=== PATIENT | male | born 1960 | race Caucasian/White ===

== ENCOUNTER → 2019-01-28 | Outpatient (CLI) | payer BC, MEDICARE ==
[2016-11-30 23:48] VITALS: BP 129/74
[~2019-01-28] MED LIST: ACET325T9 PO; ACLI400A2 IH; APIX5TAB3 PO; BUDE10.22 IH; CALC0.2530 PO; CALC200V IJ; CALC3.7S5 NS; ERGO500027 PO; ESZO3TAB28 PO; FERR325T14 PO; FOLI0.8T33 PO; HYDR25TA PO; HYOS0.1265 SL; INFL100V IV; MYCO500T PO; OMEP20CA9 PO; POTA10TA17 PO; PRED20TA PO; PRED5TAB19 PO; SODI1TAB11 PO; SUCR500T PO; TAMS0.4C2 PO
--- NOTE | 2019-01-28 16:00 | RAD ---
EXAM: Abdomen, 2 views. HISTORY: Pain. COMPARISON: None. FINDINGS: Frontal upright and supine views of the abdomen are obtained. There is moderate gas and stool within the colon. No abnormally dilated loop of bowel is seen. There is splenomegaly. There are surgical clips overlying the left mid and upper abdomen. There is no free air. IMPRESSION: 1. Nonobstructive bowel gas pattern. 2. Splenomegaly. Electronically signed by: Junie Devi MD (01/28/2019 3:57 PM) [place] [id number]
== END | disposition home or self-care (01) ==
LOC: PMG 15:36
PROVIDERS: ATTEND Physician Assistant
DX: R16.1 Splenomegaly, not elsewhere classified (principal); K92.1 Melena
CPT/HCPCS: 74021

== ENCOUNTER → 2019-02-03 | Outpatient (CLI) | payer BC, MEDICARE ==
[2016-11-30 23:48] VITALS: BP 129/74
--- NOTE | 2019-02-03 14:31 | RAD ---
Examination: CT ABDOMEN PELVIS WO CONTRAST History: HX RENAL CELL CA, PT UNABLE TO TOLERATE CONTRAST. COMPLAINS OF RIGHT LOWER PELVIC PAIN Comparison/Correlation: 04/25/2013 CT abdomen and pelvis without contrast Findings: Axial images of the abdomen and pelvis were obtained without contrast. Sagittal and coronal reformatted images were provided. Mild centrilobular emphysematous involvement of the lung gonzalez noted. Nodular contour of the liver noted. Marked splenomegaly is present with the spleen measuring 17.4 cm longitudinal. Numerous varices are noted about the splenic hilum extending about the esophagus and into the mesenteric region. 2.9 cm diameter calculus is present within the gallbladder. No pericholecystic fluid. No biliary dilatation.. Varices about the esophagus also noted. Numerous bilateral renal calculi are present. Bilateral renal cysts are present. Some of these cysts are of high density as would be expected of hemorrhagic or proteinaceous cysts. Along the posterior margin of the right renal interpolar region, there is a complex cystic structure measuring 5 cm x 2.8 cm. Moderate quantity of stool in the colon is noted. Diverticulosis of the colon identified. Trace pelvic free fluid evident. Urinary bladder is unremarkable. No extraluminal gas. Appendix is normal. Concentric disc bulge at L5/S1 noted. No acute bony process. No suspicious bony process. Lucencies involving the pelvic bony structures are unchanged compared to previous exam. Impression: Hepatic cirrhosis and splenomegaly with significant varices including about the distal esophagus. Diverticulosis. Heterogeneous complex cystic structure along the posterior margin of the right kidney is present. This may represent a hemorrhagic or proteinaceous cyst but neoplastic process is not excluded. Further evaluation with contrast-enhanced CT according to renal protocol. Consider for more complete assessment of this as well as other renal lesions. Alternatively, ultrasound may be considered. Cholelithiasis. PQRS Compliance Statement: One or more of the following individualized dose reduction techniques were utilized for this examination: 1. Automated exposure control 2. Adjustment of the mA and/or kV according to patient size 3. Use of iterative reconstruction technique Electronically signed by: Gerber Mark MD (02/03/2019 2:29 PM) [id number]
== END | disposition home or self-care (01) ==
LOC: CT 12:48
PROVIDERS: ATTEND Physician Assistant
DX: K80.20 Calculus of gallbladder without cholecystitis without obstruction (principal); K57.30 Diverticulosis of large intestine without perforation or abscess without bleeding; K74.60 Unspecified cirrhosis of liver; R16.1 Splenomegaly, not elsewhere classified; K76.89 Other specified diseases of liver; I85.00 Esophageal varices without bleeding; I86.8 Varicose veins of other specified sites; N20.0 Calculus of kidney; N28.1 Cyst of kidney, acquired; J43.2 Centrilobular emphysema
CPT/HCPCS: 74176

== ENCOUNTER → 2020-08-06 | Outpatient (CLI) | payer OTHER, MEDICARE ==
[2016-11-30 23:48] VITALS: BP 129/74
[~2020-08-06] MED LIST changes: -ACLI400A2 IH; +ACLI400A3 IH; +ALLO100T PO; +FURO40TA4 PO; +OMEP20CA16 PO; -OMEP20CA9 PO; +ZOLP10TA PO
--- NOTE | 2020-08-06 16:30 | RAD ---
LUMBAR SPINE MIN 4V History: Back pain Comparison: CT abdomen pelvis exam February 03, 2019 Findings: 5 views lumbar spine are submitted. Lumbar vertebral body stature and AP alignment are overall maintained. No acute osseous abnormality is identified by radiographs. There is facet degenerative change greater inferiorly of the lumbar spine. There is again mild to moderate narrowing greater posteriorly of the L5-S1 intervertebral disc space. There is prominent splenic arterial calcification. Impression: 1. No acute osseous abnormality is identified by radiographs. There is again L5-S1 degenerative disc disease. Electronically signed by: Jesse Dubon MD (08/06/2020 4:27 PM) [facility]
== END ==
LOC: DXRAD 15:27
PROVIDERS: ATTEND Physician Assistant
DX: M51.37 Other intervertebral disc degeneration, lumbosacral region (principal); M48.07 Spinal stenosis, lumbosacral region
CPT/HCPCS: 72110

== ENCOUNTER 2020-08-08 16:49 | Observation (INO) | payer OTHER, MEDICARE ==
[~2020-08-08] VITALS: Ht 170.2 cm; Wt 64.9 kg
[~2020-08-08 16:49] MED LIST changes: -ALLO100T PO; -FURO40TA4 PO; -ZOLP10TA PO
--- NOTE | 2020-08-08 17:22 | PHYS DOC ---
Past History Past Medical History: Bronchitis, Cancer, COPD, Kidney Stones, Renal Failure, Other Additional Past Medical Histor: SARCODOSIS, KIDNEY CANCER (SILVIA ROLDAN MD) Past Surgical History: Other Additional Past Surgical Histo: PARTIAL L NEPHRECTOMY, R KIDNEY ABLATION (SILVIA ROLDAN MD) Alcohol Use: None Drug Use: None (SILVIA ROLDAN MD) General Adult EDM: Chief Complaint: MULTIPLE COMPLAINTS HPI: HPI: 59-year-old male with history of COPD coming in for multiple complaints. Says he has congestion unable to clear his throat. Is had decreased p.o. intake. Says some of his throat is sore from try to clear congestion. Says he has been having tremors and feels like he is dehydrated. Has had some soft stools but should be seen because he is on the drinking water and Pedialyte. Has used his albuterol inhaler twice a day. States he feels like he is having decreased pulmonary function. Follows with pulmonology at . States he also about 2 weeks ago had a bilateral venous Doppler done that was negative for DVT due to symmetric lower extremity swelling. He also states that he has a nonhealing wound after about 2-1/2 months on his right vickers (SILVIA ROLDAN MD) Review of Systems: Review of Systems: Constitutional: Denies fever or chills Eyes: Denies change in visual acuity HENT: Denies nasal congestion or sore throat Respiratory: Denies cough or shortness of breath Cardiovascular: Denies chest pain or edema GI: Denies abdominal pain, nausea, vomiting, bloody stools or diarrhea : Denies dysuria Musculoskeletal: Denies back pain or joint pain Integument: Denies rash Neurologic: Denies headache, focal weakness or sensory changes Endocrine: Denies polyuria or polydipsia Lymphatic: Denies swollen glands Psychiatric: Denies depression or anxiety (SILVIA ROLDAN MD) Heart Score: Risk Factors: Risk Factors: DM, Current or recent (<one month) smoker, HTN, HLP, family history of CAD, obesity. Risk Scores: Score 0 - 3: 2.5% MACE over next 6 weeks - Discharge Home Score 4 - 6: 20.3% MACE over next 6 weeks - Admit for Clinical Observation Score 7 - 10: 72.7% MACE over next 6 weeks - Early Invasive Strategies (SILVIA ROLDAN MD) HEART Score for Chest Pain: HEART Score for Chest Pain Response (Comments) Value History Slighlty/Non-Suspicious 0 ECG Nonspecific Repolarizatio 1 Age >45 - < 65 1 Risk Factors >3 Risk Factors or Hx CAD 2 Troponin < Normal Limit 0 Total 4 Allergies: Allergies: Allergies Coded Allergies Type Severity Reaction Last Updated Verified Beta-Blockers (Beta-Adrenergic Bloc Allergy Severe sob 04/01/15 No eszopiclone Allergy Intermediate headache 04/01/15 No sucralfate Allergy Intermediate itching 04/01/15 No codeine Allergy Mild 08/28/14 Yes mycophenolate mofetil Allergy Mild 08/28/14 Yes (SILVIA ROLDAN MD) Physical Exam: PE: Constitutional: Well developed, well nourished, no acute distress, non-toxic appearance. [] HENT: Normocephalic, atraumatic, bilateral external ears normal, oropharynx moist, no oral exudates, nose normal. [] Eyes: PERRLA, EOMI, conjunctiva normal, no discharge. [] Neck: Normal range of motion, no tenderness, supple, no stridor. [] Cardiovascular:Heart rate regular rhythm, no murmur [] Lungs & Thorax: Bilateral breath sounds clear to auscultation [] Abdomen: Bowel sounds normal, soft, no tenderness, no masses, no pulsatile masses. [] Skin: Warm, dry, no erythema, no rash. [] Back: No tenderness, no CVA tenderness. [] Extremities: No tenderness, no cyanosis, no clubbing, ROM intact, no edema. [] Neurologic: Alert and oriented X 3, normal motor function, normal sensory function, no focal deficits noted. [] Psychologic: Affect normal, judgement normal, mood normal. [] (SILVIA ROLDAN MD) Current Patient Data: Vital Signs: Vital Signs Date Time Temp Pulse Resp B/P (MAP) Pulse Ox O2 Delivery O2 Flow Rate FiO2 08/08/20 17:15 97.8 120 22 127/76 (93) 97 Room Air (SILVIA ROLDAN MD) Labs: Laboratory Tests Test 08/08/20 17:18 08/08/20 17:40 Bedside Venous pH 7.39 (7.32-7.42) Bedside Venous pCO2 47 mmHg (41-51) Bedside Venous pO2 28 mmHg (20-40) Venous Blood HCO3 28 mmol/L (24-28) POC Venous O2 Saturation (Terrell) 52 % Bedside FiO2 21 White Blood Count 5.6 x10^3/uL (4.0-11.0) Red Blood Count 3.61 x10^6/uL (4.30-5.70) Hemoglobin 9.5 g/dL (13.0-17.5) Hematocrit 29.3 % (39.0-53.0) Mean Corpuscular Volume 81 fL (79-100) Mean Corpuscular Hemoglobin 26 pg (25-35) Mean Corpuscular Hemoglobin Concent 33 g/dL (31-37) Red Cell Distribution Width 18.6 % (11.5-14.5) Platelet Count 58 x10^3/uL (140-400) Neutrophils (%) (Auto) 94 % (31-73) Lymphocytes (%) (Auto) 2 % (24-48) Monocytes (%) (Auto) 4 % (0-9) Eosinophils (%) (Auto) 0 % (0-3) Basophils (%) (Auto) 0 % (0-3) Neutrophils # (Auto) 5.2 x10^3uL (1.8-7.7) Lymphocytes # (Auto) 0.1 x10^3/uL (1.0-4.8) Monocytes # (Auto) 0.2 x10^3/uL (0.0-1.1) Eosinophils # (Auto) 0.0 x10^3/uL (0.0-0.7) Basophils # (Auto) 0.0 x10^3/uL (0.0-0.2) Sodium Level 130 mmol/L (136-145) Potassium Level 3.0 mmol/L (3.5-5.1) Chloride Level 91 mmol/L (98-107) Carbon Dioxide Level 27 mmol/L (21-32) Anion Gap 12 (6-14) Blood Urea Nitrogen 96 mg/dL (8-26) Creatinine 3.4 mg/dL (0.7-1.3) Estimated GFR (Cockcroft-Gault) 18.5 BUN/Creatinine Ratio 28 (6-20) Glucose Level 95 mg/dL (70-99) Lactic Acid Level 1.2 mmol/L (0.4-2.0) Calcium Level 11.3 mg/dL (8.5-10.1) Phosphorus Level 4.7 mg/dL (2.6-4.7) Magnesium Level 2.2 mg/dL (1.8-2.4) Total Bilirubin 0.7 mg/dL (0.2-1.0) Aspartate Amino Transf (AST/SGOT) 21 U/L (15-37) Alanine Aminotransferase (ALT/SGPT) 46 U/L (16-63) Alkaline Phosphatase 128 U/L (46-116) Troponin I Quantitative 0.045 ng/mL (0-0.055) OS-Kpi-U-Type Natriuretic Peptide 674 pg/mL (0-124) Total Protein 6.3 g/dL (6.4-8.2) Albumin 3.6 g/dL (3.4-5.0) Albumin/Globulin Ratio 1.3 (1.0-1.7) Vital Signs: Vital Signs Date Time Temp Pulse Resp B/P (MAP) Pulse Ox O2 Delivery O2 Flow Rate FiO2 08/08/20 17:15 97.8 120 22 127/76 (93) 97 Room Air (ALLY SANCHEZ DO) EKG: EKG: Sinus tachycardia, heart rate 110, regular rhythm, [] (SILVIA ROLDAN MD) EKG: EKG ordered and interpreted by off going physician and then again evaluated by myself, sinus tachycardia at 110 bpm, intervals unremarkable, left axis deviation, no acute ischemic findings, no STEMI (ALLY SANCHEZ DO) Radiology/Procedures: Radiology/Procedures: [] (SILVIA ROLDAN MD) Impressions: PROCEDURE: CHEST PA & LATERAL Chest radiograph 08/08/2020 5:18 PM INDICATION: Dyspnea with COPD. History of sarcoidosis. COMPARISON: 11/30/2016 TECHNIQUE: Frontal and lateral views of the chest are provided. FINDINGS: The cardiomediastinal silhouette is within normal limits. Trace right pleural effusion and adjacent compressive atelectasis versus infiltrate. Pulmonary emphysematous changes are present. No pulmonary vascular congestion or pneumothorax. No significant osseous abnormality is identified. IMPRESSION: Trace right pleural effusion with adjacent compressive atelectasis versus infiltrate. COPD changes appears similar to prior examination. Electronically signed by: Erin Mcqueen MD (08/08/2020 6:01 PM) [facility] (ALLY SANCHEZ DO) Course & Med Decision Making: Course & Med Decision Making Care transition shift change, pending imaging and blood work. [] (SILVIA ROLDAN MD) Course & Med Decision Making Discussed case with off going physician and pending work-up Patient seen and evaluated by myself after signout, agree with off going physician's work-up thus far Patient still feeling weak at this time, he has concern for ability to tolerate p.o. intake at home and wants to be admitted After comprehensive work-up, evaluation, and discussion with patient, I feel this is needed Patient will require IV fluids, IV supplementation to correct electrolyte abnormalities, in addition to continued respiratory monitoring given patient's symptomology I discussed case with Dr. Dyson who is amenable for admission and observation Patient updated on this decision, all questions and concerns addressed prior to transport to [facility] for continued medical care (ALLY SANCHEZ DO) Dragon Disclaimer: Dragon Disclaimer: This electronic medical record was generated, in whole or in part, using a voice recognition dictation system. (SILVIA ROLDAN MD) Departure Departure: Impression: Primary Impression: Dehydration Additional Impressions: Electrolyte abnormality Dysphagia Disposition: ADMITTED INPT THIS HOSP (observation to [facility]) Admitting Physician: Az Dyson (ALLY SANCHEZ DO) Condition: STABLE Referrals: PAVEL FOX (PCP) SILVIA ROLDAN MD Aug 08, 2020 17:22 ALLY SANCHEZ DO Aug 08, 2020 18:50
--- NOTE | 2020-08-08 17:55 | EKG ---
[address] [address] Test Date: 2020-08-08 Test Time: 17:34:03 Pat Name: ESCOBAR PAZ Department: Room: Gender: M Retail Salesworker: LUIS : 1960 Requested By: SILVIA ROLDAN Order Number: [id number] Reading MD: Barry Loving Measurements Intervals [place] Rate: 110 P: 79 NH: 156 QRS: -65 QRSD: 86 T: 64 QT: 336 QTc: 460 Interpretive Statements SINUS TACHYCARDIA LEFT ATRIAL ABNORMALITY ABNORMAL LEFT AXIS DEVIATION LOW LIMB LEAD VOLTAGE RIGHT BUNDLE BRANCH BLOCK Electronically Signed On 08-24-2020 17:28:24 EMPLOYEE DEVELOPMENT MANAGER by Barry Loving
[2020-08-08 18:00] LABS: BASO % 0 % (0-3); EOS % 0 % (0-3); HEMATOCRIT 29.3 % (39.0-53.0); HEMOGLOBIN 9.5 g/dL (13.0-17.5); LYMPH # 0.1 x10^3/uL (1.0-4.8); LYMPH % 2 % (24-48); MEAN CORPUSCULAR HEMOGLOBIN 26 pg (25-35); MEAN CORPUSCULAR HGB CONC 33 g/dL (31-37); MEAN CORPUSCULAR VOLUME 81 fL (79-100); MONO # 0.2 x10^3/uL (0.0-1.1); MONO % 4 % (0-9); NEUT # 5.2 x10^3uL (1.8-7.7); NEUT % 94 % (31-73); PLATELET COUNT 58 x10^3/uL (140-400); RED BLOOD COUNT 3.61 x10^6/uL (4.30-5.70); RED CELL DISTRIBUTION WIDTH 18.6 % (11.5-14.5); WHITE BLOOD COUNT 5.6 x10^3/uL (4.0-11.0)
--- NOTE | 2020-08-08 18:05 | RAD ---
Chest radiograph 08/08/2020 5:18 PM INDICATION: Dyspnea with COPD. History of sarcoidosis. COMPARISON: 11/30/2016 TECHNIQUE: Frontal and lateral views of the chest are provided. FINDINGS: The cardiomediastinal silhouette is within normal limits. Trace right pleural effusion and adjacent compressive atelectasis versus infiltrate. Pulmonary emphysematous changes are present. No pulmonary vascular congestion or pneumothorax. No significant osseous abnormality is identified. IMPRESSION: Trace right pleural effusion with adjacent compressive atelectasis versus infiltrate. COPD changes appears similar to prior examination. Electronically signed by: Erin Mcqueen MD (08/08/2020 6:01 PM) [facility]
[2020-08-08 18:20] LABS: ALBUMIN 3.6 g/dL (3.4-5.0); ALBUMIN/GLOBULIN RATIO 1.3 (1.0-1.7); CALCIUM 11.3 mg/dL (8.5-10.1); CREATININE 3.4 mg/dL (0.7-1.3); GFR 18.5; MAGNESIUM 2.2 mg/dL (1.8-2.4); PHOSPHORUS 4.7 mg/dL (2.6-4.7); TOTAL BILIRUBIN 0.7 mg/dL (0.2-1.0); TOTAL PROTEIN 6.3 g/dL (6.4-8.2)
[2020-08-08] MEDS ORDERED: POTASSIUM CHLORIDE 20 MEQ TABLET.ER. PO ONE (18:30)
[2020-08-08] MEDS ORDERED: POTASSIUM CL 40MEQ IN 0.9%NACL 500 ML IV ONE (18:45)
[2020-08-08] MEDS ORDERED: POTASSIUM CL 40MEQ IN 0.9%NACL 1,000 ML IV ONE (19:00)
[2020-08-08] MEDS ORDERED: ACETAMINOPHEN 325 MG TABLET PO PRN (19:00)
[2020-08-08 20:16] VITALS: BP 118/71
[2020-08-08] MEDS ORDERED: FURO40TA4 PO (21:13)
[2020-08-08] MEDS ORDERED: PRED20TA PO (21:13)
[2020-08-08] MEDS ORDERED: ALLO100T PO (21:13)
[2020-08-08] MEDS ORDERED: ZOLP10TA PO (21:13)
[2020-08-08] MEDS ORDERED: ZOLPIDEM 5 MG TABLET. PO PRN (21:30)
[2020-08-08 21:37] LABS: BILIRUBIN,URINE NEG (NEG); CLARITY,URINE CLEAR; COLOR,URINE STRAW; GLUCOSE,URINE NEG (NEG); NITRITE,URINE NEG (NEG); UROBILINOGEN,URINE 0.2 mg/dL (0.2 mg/dL)
[2020-08-08 21:44] LABS: BACTERIA,URINE 0 /HPF (0-FEW); RBC,URINE 0 /HPF (0-2); SQUAMOUS EPITHELIAL CELL,UR OCC /LPF; WBC,URINE 0 /HPF (0-4)
[2020-08-08] MEDS ORDERED: predniSONE 20 MG TABLET PO SCH (22:00)
--- NOTE | 2020-08-08 22:52 | NUR ---
The patient, ESCOBAR PAZ, 59 y/o, M admitted by FELIX GARCIA MD, to room 117, was given written information regarding hospital policies, unit procedures and contact persons. Valuables were checked and left with the patient. Medications reviewed, needs assessed, medical history reviewed. Reviewed medications with Dr. Garcia; orders given and implemented. Will continue to monitor.
[2020-08-08 23:00] VITALS: BP 119/75
[2020-08-09 05:56] VITALS: BP 113/76
[2020-08-09 07:12] LABS: CALCIUM 10.2 mg/dL (8.5-10.1); CREATININE 3.2 mg/dL (0.7-1.3); GFR 19.8; POTASSIUM 3.5 mmol/L (3.5-5.1)
[2020-08-09] MEDS: IPRATRPIUM/ALBUTEROL 0.5/2.5MG 3 ML NEBU. NEB SCH ×2 (08:00→09:58)
[2020-08-09] MEDS ORDERED: BUDESONIDE 0.5 MG/2 ML NEBU NEB SCH (08:00)
[2020-08-09] MEDS ORDERED: FORMOTEROL FUMARATE IH SCH (09:00)
[2020-08-09] MEDS ORDERED: NON FORMULARY ITEM (Aclidinium Bromide (Tudorza Pressair) 400 MCG) IH SCH (09:00)
[2020-08-09] MEDS ORDERED: predniSONE 20 MG TABLET PO SCH (09:00)
[2020-08-09] MEDS ORDERED: BUDESONIDE IH SCH (09:00)
[2020-08-09] MEDS ORDERED: [UNRECOGNIZED DRUG - OTHER] IH SCH (09:00)
[2020-08-09] MEDS ORDERED: TAMSULOSIN 0.4 MG CAP.ER.24H. PO SCH (09:00)
--- NOTE | 2020-08-09 10:14 | HP ---
ADMIT DATE: 08/09/2020 ATTENDING PHYSICIAN: Dr. Garcia. CHIEF COMPLAINT: Weakness and low potassium. HISTORY OF PRESENT ILLNESS: The patient is a 59-year-old gentleman with sarcoidosis, COPD. He is on chronic prednisone therapy. He was admitted with weakness, dehydration, and hypokalemia of 3.0. He has sarcoidosis. He has had previous kidney ablation and partial resection. His baseline creatinine is 3.0 mg percent. He had bilateral venous Doppler studies recently. He was admitted for further treatment and evaluation. PAST MEDICAL HISTORY: Significant for chronic COPD, sarcoidosis, renal cell cancer and partial resection, partial left nephrectomy, right kidney ablation. He is on chronic prednisone therapy. CURRENT MEDICINES: Reviewed. ALLERGIES: He has allergies to BETA BLOCKERS, CODEINE, MYCOPHENOLATE and CARAFATE. CURRENT MEDICATIONS: Include Tylenol, Tudorza inhalers, allopurinol, apixaban, budesonide, calcium, ferrous sulfate, folic acid, Lasix daily, hydroxyzine, Remicade has been discontinued, mycophenolate, CellCept, potassium, prednisone 40 mg daily, sodium bicarbonate, Flomax and Ambien at bedtime. SOCIAL HISTORY: He is a nonsmoker, nondrinker. FAMILY HISTORY: Noncontributory. REVIEW OF SYSTEMS: Significant for chronic phlegm, dyspnea with some exertion. His creatinine has been elevated. He has chronic renal failure. He tells me they wanted to do dialysis 15 years ago. He had close followup and avoided it since then. He sees a Pulmonary and Nephrology Services as well as Rheumatology at [facility]. All other systems reviewed and turned to be negative. PHYSICAL EXAMINATION: GENERAL: When I saw him, this is a pleasant, alert gentleman. INITIAL VITAL SIGNS: Showed a blood pressure 127/76 mmHg. He was afebrile, pulse is 103 and regular. He had oxygen saturation 97% on room air. HEENT: Head is without trauma. Pupils are reactive. Sclerae nonicteric. Oropharynx is clear. NECK: Supple, no bruits identified. LUNGS: Otherwise clear. CARDIOVASCULAR: Showed regular heart tones. No gallops. ABDOMEN: Soft, scaphoid, nontender. EXTREMITIES: Showed no cyanosis. He has 1+ edema. NEUROLOGIC FUNCTION: Focally intact. SKIN: Warm and dry. There is a chronic nonhealing wound of the right vickers. NEUROLOGIC: Focally intact. Speech is fluent. PERTINENT LABORATORY STUDIES: The admission hemoglobin was 9.5 g/dL, white count 5600, potassium 3.0 mEq, creatinine is 3.4 mg percent. Transaminases normal. Cardiac enzymes negative. BNP was 674. Chest x-ray demonstrated trace right pleural effusion with some minimal atelectasis, no acute infiltrates identified. ASSESSMENT: A 59-year-old gentleman with; 1. Dehydration due to diuretics. 2. Hypokalemia. 3. History of sarcoidosis. 4. Acute on chronic renal failure. 5. History of partial nephrectomy. 6. Anemia of chronic disease. PLAN: 1. Observation status. 2. IV hydration, potassium supplementation. 3. Diuretics have been held. 4. Continue home meds. FELIX GARCIA MD DR: LENNIE/arielle JOB#: [id number] / [id number]
--- NOTE | 2020-08-09 10:16 | DS ---
DATE OF DISCHARGE: 08/09/2020 ATTENDING PHYSICIAN: Dr. Garcia. FINAL DISCHARGE DIAGNOSES: 1. Dehydration, rehydrated. 2. Hypokalemia, replaced. 3. Acute on chronic renal failure. 4. Sarcoidosis. 5. Chronic prednisone therapy. 6. Hypertension. 7. History of pulmonary embolism. 8. Dysphagia. HISTORY AND PHYSICAL: This pleasant 59-year-old gentleman with multiple medical issues, is on chronic prednisone therapy. He has fluid retention. He was dehydrated from his Lasix diuretics, potassium was 3.0 mEq per liter. He was admitted for further treatment and adjustment of the electrolyte abnormalities. PHYSICAL EXAMINATION: Please see the dictated note. PERTINENT LABORATORY AND X-RAY STUDIES: Repeat potassium is up to 3.5 mEq, sodium state at 130, creatinine improved from 3.4 down to 3.2 mg/dL, this is his baseline. Calcium is 10.2. COURSE IN THE HOSPITAL: The patient was admitted. We held his diuretics for a day. He received IV hydration fluids and potassium replacement. He did well. By the next hospital day, vital signs are stable. Swelling was not a problem. He wanted to go home. I felt this is reasonable. At this time, I recommend that he hold his diuretics for another day. In addition, he should continue his prednisone scheduled 40 mg daily to be tapered by his primary care doctor. He will continue his Tudorza inhaler, allopurinol, Eliquis, budesonide, calcitonin, Lunesta, ferrous sulfate, folic acid, Lasix starting the next day, one alternating with 240 mg tablets every other day, hyoscyamine, Remicade, CellCept, potassium 20 mEq daily, I did not increase it due to his renal clearance. Again, sodium bicarbonate, Velphoro, Flomax and Ambien dose is unchanged. He will follow up in the next week or so with lab work at the office with Fernando Smith. He was discharged then from our hospital in stable condition with explicit instructions and followup care. FELIX GARCIA MD DR: LENNIE/arielle JOB#: [id number] / [id number] FERNANDO Varela
[2020-08-09 10:27] VITALS: BP 126/76
== END 2020-08-09 13:15 | disposition home or self-care (01) ==
LOC: ER 16:49 → 1 SOUTH 19:09
PROVIDERS: ADMIT Hospitalist; ATTEND Hospitalist
DX: E86.0 Dehydration (principal); T50.2X5A Adverse effect of carbonic-anhydrase inhibitors, benzothiadiazides and other diuretics, initial encounter; E87.6 Hypokalemia; D63.8 Anemia in other chronic diseases classified elsewhere; D86.9 Sarcoidosis, unspecified; N17.9 Acute kidney failure, unspecified; N18.9 Chronic kidney disease, unspecified; J44.9 Chronic obstructive pulmonary disease, unspecified; Z79.52 Long term (current) use of systemic steroids; Z79.899 Other long term (current) drug therapy
CPT/HCPCS: 36415; 71046; 80048; 80053; 81001; 82803; 83605; 83735; 83880; 84100; 84443; 84484; 85025; 93005; 96365; 96366; 99285; G0378; J7512; G0379

== ENCOUNTER → 2020-08-24 | Outpatient (CLI) | payer OTHER, MEDICARE ==
[2020-08-09 10:27] VITALS: BP 126/76
[~2020-08-24] MED LIST changes: +ALLO100T PO; +FURO40TA4 PO; +ZOLP10TA PO
== END ==
LOC: LAB 13:32
PROVIDERS: ATTEND Physician Assistant
DX: R06.00 Dyspnea, unspecified (principal); Z20.828 Contact with and (suspected) exposure to other viral communicable diseases
CPT/HCPCS: U0003

== ENCOUNTER 2020-09-06 16:59 | Emergency (ER) | payer OTHER, MEDICARE ==
[~2020-09-06] VITALS: Ht 172.7 cm; Wt 61.0 kg
[2020-09-06] MEDS ORDERED: 0.9 % SODIUM CHLORIDE 10 ML DISP.SYRIN. IV PRN (17:15)
--- NOTE | 2020-09-06 17:26 | PHYS DOC ---
Past History Past Medical History: Bronchitis, Cancer, COPD, Kidney Stones, Renal Failure, Other Additional Past Medical Histor: SARCODOSIS, KIDNEY CANCER (CANDELARIA PEARSON APRN) Past Surgical History: Tonsillectomy, Other Additional Past Surgical Histo: PARTIAL L NEPHRECTOMY, R KIDNEY ABLATION (CANDELARIA PEARSON APRN) Alcohol Use: None Drug Use: None (CANDELARIA PEARSON APRN) Adult General Chief Complaint Chief Complaint: HYPOTENSION HPI HPI Patient is a 60-year-old male patient presenting to the ED today to be evaluated for low blood pressure, weakness for 1 week, and chronic wounds to bilateral LE. Patient reports history of renal failure, partial left nephrectomy, and states they planto start him on dialysis. He states he has history of sarcoidosis and COPD as well. Denies any fever, has chronic cough (CANDELARIA PEARSON APRN) Review of Systems Review of Systems Constitutional: Reports generalized weakness. Denies fever or chills [] Eyes: Denies change in visual acuity, redness, or eye pain [] HENT: Denies nasal congestion or sore throat [] Respiratory: Denies cough or shortness of breath [] Cardiovascular: Reports hypertension. No additional information not addressed in HPI [] GI: Denies abdominal pain, nausea, vomiting, bloody stools or diarrhea [] : Denies dysuria or hematuria [] Musculoskeletal: Denies back pain or joint pain [] Integument: Reports chronic wounds to bilateral lower extremities Neurologic: Denies headache, focal weakness or sensory changes [] All other systems were reviewed and found to be within normal limits, except as documented in this note. (CANDELARIA PEARSON APRN) Current Medications Current Medications Current Medications Medications (Trade) Dose Ordered Sig/Anamaria Start Time Stop Time Status Last Admin Dose Admin Fentanyl Citrate (Fentanyl 2ml Vial) 50 mcg PRN Q15MIN PRN 09/06/20 17:15 09/07/20 17:14 Sodium Chloride (Normal Saline Flush) 10 ml QSHIFT PRN 09/06/20 17:15 (CANDELARIA PEARSON APRN) Allergies Allergies Allergies Coded Allergies Type Severity Reaction Last Updated Verified Beta-Blockers (Beta-Adrenergic Bloc Allergy Severe sob 09/06/20 No eszopiclone Allergy Intermediate headache 09/06/20 No sucralfate Allergy Intermediate itching 09/06/20 No codeine Allergy Mild 09/06/20 Yes mycophenolate mofetil Allergy Mild 09/06/20 Yes erythromycin base Allergy Unknown 09/06/20 Yes (CANDELARIA PEARSON APRN) Physical Exam Physical Exam Constitutional: Well developed, well nourished, no acute distress, non-toxic appearance. [] HENT: Normocephalic, atraumatic, bilateral external ears normal, oropharynx moist, no oral exudates, nose normal. [] Eyes: PERRLA, EOMI, conjunctiva normal, no discharge. [] Neck: Normal range of motion, no tenderness, supple, no stridor. [] Cardiovascular:Heart rate regular rhythm, no murmur [] Lungs & Thorax: Bilateral breath sounds clear to auscultation [] Abdomen: Rounded patient reports this is chronic. Bowel sounds normal, soft, no tenderness, no masses, no pulsatile masses. [] Skin: Warm, dry, left vickers distal end with 2 open wounds, one appears to be stage II 3 x 3 cm with yellow drainage, other one is approximately 2 x 2 cm with yellow drainage. Wounds appears to be old. No cellulitis around it. Bruising throughout his bilateral upper extremities from taking prednisone, similar bruising to lower extremities. Back: No tenderness, no CVA tenderness. [] Extremities: No tenderness, no cyanosis, no clubbing, ROM intact, +3 bilateral edema Neurologic: Alert and oriented X 3, normal motor function, normal sensory function, no focal deficits noted. Cranial nerves II through XII intact Psychologic: Affect normal, judgement normal, mood normal. [] (CANDELARIA PEARSON APRN) Current Patient Data Vital Signs Vital Signs Date Time Temp Pulse Resp B/P (MAP) Pulse Ox O2 Delivery O2 Flow Rate FiO2 09/06/20 17:05 97.6 84 16 110/72 (85) 98 Room Air (CANDELARIA PEARSON APRN) EKG EKG [address] Paula sinus tachycardia HR 110 no STEMI[] (CANDELARIA PEARSON APRN) Radiology/Procedures Radiology/Procedures []PROCEDURE: PORTABLE CHEST 1V Examination: PORTABLE CHEST 1V History: weakness / Comparison/Correlation: 08/08/2020 2V chest x-ray exam Findings: AP frontal view of the chest was obtained. Heart size is normal. Pulmonary vasculature is unremarkable. Right lung field is clear. Small focal cavitary infiltrate measuring 1.7 cm at the left mid thoracic region is present. No definite effusion or pneumothorax. Bony structures are unremarkable. Impression: Small left midthoracic cavitary infiltrate is present. Follow-up to resolution recommended. Electronically signed by: Gerber Martin MD (09/06/2020 6:12 PM) [facility] DICTATED AND SIGNED BY: GERBER MARTIN MD DATE: 09/06/201811 CC: PAVEL FOX; CANDELARIA PEARSON APRN ~ (CANDELARIA PEARSON APRN) Heart Score Risk Factors: Risk Factors: DM, Current or recent (<one month) smoker, HTN, HLP, family history of CAD, obesity. Risk Scores: Risk Factors: DM, Current or recent (<one month) smoker, HTN, HLP, family history of CAD, obesity. (CANDELARIA PEARSON APRN) Course & Med Decision Making Course & Med Decision Making Pertinent Labs and Imaging studies reviewed. (See chart for details) This is a 60-year-old male patient with history of kidney failure, sarcoidosis, hypertension, who presents to the ED today to be evaluated for hypotension, weakness for 1 week and chronic lower extremity wounds. Blood pressure 110/72 with a heart rate of 84 on arrival CBC with a normal WBC, hemoglobin 9.8, hematocrit 29.6. Potassium 2.8, sodium 129, Chest x-ray noted for right middle lobe pneumonia. Ordered Zosyn and Levaquin Dr. Gililam recommended we do not start him on potassium due to renal failure Troponin 0.372 Dr. Gilliam stated this is likely from renal failure he has no chest pain and EKG is negative Due to the need of technical account representative, patient was transferred to [facility] (CANDELARIA PEARSON APRN) Dragon Disclaimer Dragon Disclaimer This electronic medical record was generated, in whole or in part, using a voice recognition dictation system. (CANDELARIA PEARSON APRN) Dragon Disclaimer Patient was primarily seen by the PRABHJOT Candelaria. I was here in the ER during this ED work-up. I agreed with the need for admission which in this case meant transfer to [facility]. Patient may need consult with nephrology (SAADIA GILLIAM DO) Departure Departure: Impression: Primary Impression: CRF (chronic renal failure) Additional Impressions: Anemia Hypokalemia Left lower lobe pneumonia Elevated troponin Disposition: 07 AMA/ELOPED/LWBS Condition: STABLE Referrals: PAVEL FOX (PCP) Problem Qualifiers Primary Impression: CRF (chronic renal failure) Chronic kidney disease stage: unspecified stage Qualified Codes: N18.9 - Chronic kidney disease, unspecified Additional Impressions: Anemia Anemia type: unspecified type Qualified Codes: D64.9 - Anemia, unspecified Left lower lobe pneumonia Pneumonia type: due to unspecified organism Qualified Codes: J18.9 - Pneumonia, unspecified organism CANDELARIA PEARSON APRN Sep 06, 2020 17:26 SAADIA GILLIAM DO Sep 07, 2020 02:12
--- NOTE | 2020-09-06 17:28 | EKG ---
[address] [address] Test Date: 2020-09-06 Test Time: 17:05:11 Pat Name: ESCOBAR PAZ Department: Room: Gender: M [employer]: LUIS : [id number] Requested By: RAND PEARSON Order Number: [id number] Reading MD: Measurements Intervals Howe Rate: 110 P: 69 TX: 170 QRS: 246 QRSD: 92 T: 59 QT: 340 QTc: 466 Interpretive Statements SINUS TACHYCARDIA LEFT ATRIAL ABNORMALITY ABNORMAL RIGHT SUPERIOR AXIS DEVIATION LOW LIMB LEAD VOLTAGE CONSIDER LEFT VENTRICULAR HYPERTROPHY QRS(T) CONTOUR ABNORMALITY CONSISTENT WITH ANTERIOR INFARCT PROBABLY OLD CONSISTENT WITH INFEROLATERAL INFARCT
[2020-09-06 18:03] LABS: BASO % 0 % (0-3); EOS % 0 % (0-3); HEMATOCRIT 29.6 % (39.0-53.0); HEMOGLOBIN 9.8 g/dL (13.0-17.5); LYMPH # 0.2 x10^3/uL (1.0-4.8); LYMPH % 2 % (24-48); MEAN CORPUSCULAR HEMOGLOBIN 27 pg (25-35); MEAN CORPUSCULAR HGB CONC 33 g/dL (31-37); MEAN CORPUSCULAR VOLUME 80 fL (79-100); MONO # 0.4 x10^3/uL (0.0-1.1); MONO % 5 % (0-9); NEUT # 7.2 x10^3uL (1.8-7.7); NEUT % 93 % (31-73); PLATELET COUNT 46 x10^3/uL (140-400); RED CELL DISTRIBUTION WIDTH 18.3 % (11.5-14.5); WHITE BLOOD COUNT 7.7 x10^3/uL (4.0-11.0)
--- NOTE | 2020-09-06 18:14 | RAD ---
Examination: PORTABLE CHEST 1V History: weakness / Comparison/Correlation: 08/08/2020 2V chest x-ray exam Findings: AP frontal view of the chest was obtained. Heart size is normal. Pulmonary vasculature is unremarkable. Right lung field is clear. Small focal cavitary infiltrate measuring 1.7 cm at the left mid thoracic region is present. No definite effusion or pneumothorax. Bony structures are unremarkable. Impression: Small left midthoracic cavitary infiltrate is present. Follow-up to resolution recommended. Electronically signed by: Gerber Mark MD (09/06/2020 6:12 PM) [facility]
[2020-09-06 18:43] LABS: ALBUMIN 2.9 g/dL (3.4-5.0); CALCIUM 11.2 mg/dL (8.5-10.1); CREATININE 2.8 mg/dL (0.7-1.3); GFR 23.1; MAGNESIUM 2.1 mg/dL (1.8-2.4); TOTAL BILIRUBIN 0.5 mg/dL (0.2-1.0); TOTAL PROTEIN 5.8 g/dL (6.4-8.2)
[2020-09-06 18:50] LABS: POTASSIUM 2.8 mmol/L (3.5-5.1)
[2020-09-06] MEDS ORDERED: POTASSIUM CHLORIDE 20 MEQ TABLET.ER. PO ONE (19:00)
[2020-09-06 20:30] LABS: % LYMPHS 3 % (24-48); % MONOS 4 % (0-10); % SEGS 93 % (35-66)
[2020-09-06 20:31] LABS: ANISOCYTOSIS SLIGHT; PLT ESTIMATE DECREASED (ADEQUATE)
[2020-09-06 22:00] VITALS: BP 91/41
[2020-09-06] MEDS ORDERED: VANCOMYCIN PER PHARMACY MC PRN (22:00)
[2020-09-06] MEDS ORDERED: PIPERACILLIN/TAZOBACTAM 3.375 GM in IV NORMAL SALINE 50ML 50 ML IV ONE (22:00)
[2020-09-06] MEDS ORDERED: PIPERACILLIN/TAZOBACTAM 2.25 GM VIAL IV ONE (22:10)
[2020-09-06] MEDS ORDERED: IV NORMAL SALINE 50ML 50 ML ONE (22:10)
[2020-09-06] MEDS ORDERED: PIPERACILLIN/TAZOBACTAM 2.25 GM in IV NORMAL SALINE 50ML 50 ML IV ONE (22:15)
== END 2020-09-06 22:10 | disposition left against medical advice (07) ==
LOC: ER 16:59
DX: S60.222A Contusion of left hand, initial encounter (principal); S60.221A Contusion of right hand, initial encounter; S80.12XA Contusion of left lower leg, initial encounter; S80.11XA Contusion of right lower leg, initial encounter; N18.9 Chronic kidney disease, unspecified; D64.9 Anemia, unspecified; E87.6 Hypokalemia; J18.9 Pneumonia, unspecified organism; R77.8 Other specified abnormalities of plasma proteins; J44.9 Chronic obstructive pulmonary disease, unspecified; Z87.442 Personal history of urinary calculi; Z99.2 Dependence on renal dialysis; Z90.5 Acquired absence of kidney; Z88.8 Allergy status to other drugs, medicaments and biological substances; Z88.5 Allergy status to narcotic agent; Z88.1 Allergy status to other antibiotic agents; X58.XXXA Exposure to other specified factors, initial encounter; Y93.89 Activity, other specified; Y92.89 Other specified places as the place of occurrence of the external cause; Y99.8 Other external cause status
CPT/HCPCS: 36415; 71045; 80053; 82553; 83605; 83690; 83735; 83880; 84484; 85007; 85025; 85610; 85730; 87040; 93005; 99285